=== PATIENT | female | born 1945 ===

== ENCOUNTER 2018-04-26 11:41 | Outpatient (CLI) | payer MEDICARE, BC | END 2018-04-26 11:42 | disposition home or self-care (01) | LOC: BICMAMMO 11:41 | PROVIDERS: ATTEND Family Medicine | DX: Z12.31 Encounter for screening mammogram for malignant neoplasm of breast (principal); Z85.41 Personal history of malignant neoplasm of cervix uteri | CPT/HCPCS: 77063; 77067 ==